=== PATIENT | female | born 1990 | race Caucasian/White ===

== ENCOUNTER 2018-05-15 10:24 | Emergency (ER) | payer OTHER ==
[~2018-05-15] VITALS: Ht 160 cm; Wt 43.1 kg
== END 2018-05-15 14:14 | disposition home or self-care (01) ==
LOC: ER 10:24
DX: S90.02XA Contusion of left ankle, initial encounter (principal); W50.0XXA Accidental hit or strike by another person, initial encounter; Y93.89 Activity, other specified; Y92.89 Other specified places as the place of occurrence of the external cause; Y99.8 Other external cause status

== ENCOUNTER 2018-12-02 15:44 | Outpatient (CLI) | payer OTHER | END 2018-12-02 16:54 | disposition home or self-care (01) | LOC: RAD 15:44 | DX: M76.812 Anterior tibial syndrome, left leg (principal) ==

== ENCOUNTER 2024-01-16 11:04 | Outpatient (CLI) | payer OTHER | END 2024-01-16 11:07 | disposition home or self-care (01) | LOC: SONOGRAMA 11:04 | PROVIDERS: ATTEND Pathology Anatomic Pathology & Clinical Pathology | DX: D34 Benign neoplasm of thyroid gland (principal); E04.1 Nontoxic single thyroid nodule; E07.89 Other specified disorders of thyroid ==